=== PATIENT | female | born 1975 | race Caucasian/White ===

== ENCOUNTER 2016-10-12 21:53 | Emergency (ER) | payer OTHER ==
[2016-10-12 22:20] VITALS: BP 112/70; PULSE 93; O2SAT 99
[2016-10-12] MEDS ORDERED: NORCO 5/325 MG PO ONE ×2 (22:25→22:56)
[2016-10-12] MEDS ORDERED: NORCO 5/325 MG ONE ×2 (22:29→23:06)
--- NOTE | 2016-10-12 22:32 | ERPHSYRPT ---
- History of Present Illness Time Seen by Provider: 10/12/16 22:21 Source: patient Exam Limitations: no limitations Patient Subjective Stated Complaint: fell taking dog out and rolled her ankle cannot put any pressure on it Triage Nursing Assessment: pt alert and oriented x3, right ankle swollen on outside of ankle Physician History: ABOUT 1 HOUR AGO AT HOME PT WAS LETTING HER 65# DOG OUT THE DOOR, WAS NOT PAYING FULL ATTENTION AND HER DOG PULLED HER DOWN WITH RESULTANT PAIN IN THE RIGHT ANKLE AND ABRASION TO THE LEFT KNEE; DENIES NUMBNESS OF EITHER FOOT; DENIES PRIOR INJURY TO THE LEFT KNEE OR RIGHT ANKLE. PT REFUSES TO HAVE AN X- RAY OF HER LEFT KNEE DONE. PT DENIES BACK PAIN, NECK PAIN, VOMITING, HEADACHE, ANY OTHER PAIN OR INJURY. Allergies/Adverse Reactions: No Known Drug Allergies Allergy (Unverified 10/12/16 22:21) Hx Tetanus, Diphtheria Vaccination/Date Given: Yes Hx Influenza Vaccination/Date Given: No Hx Pneumococcal Vaccination/Date Given: No Immunizations Up to Date: Yes - Review of Systems Respiratory: No Dyspnea Cardiac: No Chest Pain Abdominal/Gastrointestinal: No Abdominal Pain, No Vomiting Musculoskeletal: Joint Pain (RIGHT ANKLE PAIN TODAY.), No Back Pain, No Neck Pain Skin: Other (LEFT KNEE ABRASION TODAY.) Neurological: No Headache All Other Systems: Reviewed and Negative - Past Medical History Pertinent Past Medical History: No - Past Surgical History Past Surgical History: Yes Female Surgical History: Other - Social History Smoking Status: Current some day smoker Drug Use: none Patient Lives Alone: No - Nursing Vital Signs Nursing Vital Signs: Initial Vital Signs Temperature 98.4 F Temperature Source Oral Pulse Rate 93 Respiratory Rate 16 Blood Pressure [Left Arm] 112/70 Pain Intensity 7 - Physical Exam General Appearance: alert Hips Exam: bilateral: normal range of motion Legs Exam: bilateral leg: normal range of motion Knees Exam: left knee: other (MILD TENDERNESS OVER AN ABRASION TO INFERIOR ASPECT OF THE LEFT KNEE ~ 2 CM DIAMETER.), bilateral knee: normal range of motion Ankle Exam: right ankle: limited range of motion (MILD TENDERNESS AND EDEMA OF THE LATERAL ASPECT OF THE RIGHT ANKLE. ), left ankle: normal range of motion Foot Exam: bilateral foot: other (GOOD SENSATION AND CAPILLARY REFILL OF ALL TOES OF BOTH FEET.) Neuro/Tendon Exam: normal sensation Mental Status Exam: alert, cooperative SpO2 Interpretation: normal SpO2: 99 Oxygen Delivery: Room Air - Course Nursing assessment & vital signs reviewed: Yes - Radiology Exams Right Ankle X-ray Interpretation: Interpreted by me, No Fracture Ordered Tests: Active Orders 24 hr Category Date Time Status Thor Bandage Application -[facility] STAT Care 10/12/16 22:25 Active Crutches STAT Care 10/12/16 22:25 Active ANKLE (3 VIEWS) Stat Exams 10/12/16 22:25 Taken Medication Summary Discontinued Medications Generic Name Dose Route Start Last Admin Trade Name Freq PRN Reason Stop Dose Admin Acetaminophen/Hydrocodone Bitart 2 tab 10/12/16 22:25 10/12/16 22:30 Holmes 5/325 Mg PO 10/12/16 22:26 2 tab STAT ONE Administration Acetaminophen/Hydrocodone Bitart Confirm 10/12/16 22:29 Holmes 5/325 Mg Administered 10/12/16 22:30 Dose 2 tab .ROUTE .STK-MED ONE - Departure Time of Disposition: 22:56 Departure Disposition: Home Clinical Impression: SPRAIN OF RIGHT ANKLE, LEFT KNEE CONTUSION/ABRASION Condition: Fair Critical Care Time: No Instructions: Ankle Sprain Additional Instructions: FOLLOW UP WITH PRIVATE DOCTOR TOMORROW. ELEVATE RIGHT ANKLE ABOVE HEART LEVEL FOR 24 HOURS. THOR WRAP TO RIGHT ANKLE FOR 4 DAYS. NO WEIGHT BEARING ON RIGHT FOOT FOR 4 DAYS. USE CRUTCHES FOR 2 WEEKS. NEOSPORIN & BANDAGE DAILY TO LEFT KNEE ABRASION FOR 1 WEEK. Prescriptions: Naproxen [Naprosyn] 500 mg PO Q12H PRN PRN #20 tablet PRN Reason: Pain
--- NOTE | 2016-10-13 08:48 | XRAY ---
Indication: Pain and edema following twisting injury. Comparison: None 3 views of the right ankle demonstrates anterior lateral soft tissue swelling and small plantar heel spur. No other bony, articular, or soft tissue abnormalities.
== END 2016-10-12 23:20 | disposition home or self-care (01) ==
LOC: ED 21:53
DX: S93.401A Sprain of unspecified ligament of right ankle, initial encounter (principal); W54.8XXA Other contact with dog, initial encounter
CPT/HCPCS: 73610; 99283